=== PATIENT | female | born 1995 | race Caucasian/White ===

== ENCOUNTER 2017-09-19 13:39 | Emergency (ER) | payer OTHER ==
[~2017-09-19] VITALS: Ht 170.2 cm; Wt 64.4 kg
[~2017-09-19 13:39] MED LIST: PRENATAL MULTI1 EAC2 PO
[2017-09-19 14:08] VITALS: BP 122/70
[2017-09-19 15:06] LABS: ABSOLUTE BASOPHIL COUNT 0 /CUMM (0.0-0.2); ABSOLUTE EOSINOPHIL COUNT 0.1 /CUMM (0.0-0.7); ABSOLUTE GRANULOCYTE CT 9.5 /CUMM (1.4-6.5); ABSOLUTE LYMPH COUNT 2.1 /CUMM (1.2-3.4); ABSOLUTE MONOCYTE COUNT 1.2 /CUMM (0.10-0.60); BASOPHIL % 0.2 % (0.0-2.0); EOSINOPHIL % 0.5 % (0-5); GRANULOCYTE % 73.9 % (42.2-75.2); MEAN CORPUSCULAR HGB 28.6 PG (27.0-31.0); MEAN CORPUSCULAR HGB CONC 33.6 G/DL (33.0-37.0); MEAN CORPUSCULAR VOLUME 85.3 FL (81.0-99.0); MEAN PLATELET VOLUME 7.7 FL (7.4-10.4); PLATELET COUNT 277 /CUMM (130-400); RBC DISTRIBUTION WIDTH 13.3 % (11.5-14.5); RED BLOOD CELL CT 3.98 /CUMM (4.20-5.40); WHITE BLOOD CELL COUNT 12.9 /CUMM (4.8-10.8)
--- NOTE | 2017-09-19 17:00 | ED GI/GU/ABDOMINAL COMPLAINT ---
History of Present Illness General Chief Complaint: General Adult Stated Complaint: PAINFUL HEMMERHOID Source: patient Exam Limitations: no limitations Vital Signs & Intake/Output Vital Signs & Intake/Output Vital Signs Date Time Temp Pulse Resp B/P B/P Pulse O2 O2 Flow FiO2 Mean Ox Delivery Rate 09/19 1408 98.7 120 17 122/70 96 Room Air ED Intake and Output 09/20 0000 09/19 1200 Intake Total 0 Output Total Balance 0 Intake, Oral 0 Patient 142 lb Weight Weight Estimated Measurement Method Allergies Coded Allergies: vancomycin (Severe, HIVES 04/27/17) Reconcile Medications Pnv No.122/Iron/Folic Acid ( Multi Tablet) 27 MG IRON-800 MCG TABLET 1 TAB PO DAILY SUPPLEMENT (Reported) Triage Note: RECEIVED 22 YO FEMALE , 35 WEEKS , DUE 10/24/17. PT WITH HX OF HEMORRHOIDS, C/O SEVERE WORSENING ANAL AREA PAIN. NO C/O VAGINAL PAIN OR SEVERE CRAMPING. Triage Nurses Notes Reviewed? yes ? Y Is pt currently ? No Onset: Gradual Duration: week(s): Timing: recent history Quality/Severity: moderate Location: rectal HPI: 22yo female 35 weeks presents to emergency department complaining of increasing painful hemorrhoids for the past few days. Patient has had hemorrhoids since her previous . Patient states that over the past 3 days she has had increasing pain and feels increasing size of hemorrhoid externally. Patient reports pain with passing gas or bowel movement. Patient has been applying Anusol cream topically. Patient has not had rectal bleeding with this hemorrhoid. Patient denies fevers, chills. (Donna Bai) Past History Travel History Traveled to [place] past 21 day No Medical History Any Pertinent Medical History? 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 No (Donna Bai) Review of Systems Review of Systems Constitutional: Reports: no symptoms. EENTM: Reports: no symptoms. Respiratory: Reports: no symptoms. Cardiovascular: Reports: no symptoms. GI: Reports: no symptoms. Genitourinary: Reports: see HPI. Musculoskeletal: Reports: no symptoms. Skin: Reports: no symptoms. Neurological/Psychological: Reports: no symptoms. Hematologic/Endocrine: Reports: no symptoms. Immunologic/Allergic: Reports: no symptoms. All Other Systems: Reviewed and Negative (Lamar VAZQUEZ,Donna Higgins) Physical Exam Physical Exam General Appearance: well developed/nourished, no apparent distress, alert, awake Head: atraumatic, normal appearance Eyes: Bilateral: normal appearance. Ears, Nose, Throat, Mouth: hearing grossly normal Neck: normal inspection, supple, full range of motion Respiratory: normal breath sounds, no respiratory distress, lungs clear Cardiovascular: regular rate/rhythm Gastrointestinal: normal bowel sounds, soft, non-tender Rectal: external hemorrhoids without active bleeding Back: normal inspection, normal range of motion Extremities: normal range of motion Neurologic/Psych: awake, alert, oriented x 3 Skin: intact, normal color, warm/dry Core Measures ACS in differential dx? No Sepsis Present: No Sepsis Focused Exam Completed? No (Lamar VAZQUEZ,Donna Higgins) Progress Differential Diagnosis: intrauterine , hemorrhoids, anal fissue, abscess, rectal bleeding Plan of Care: Orders Procedure Date/time Status URINALYSIS 09/19 1409 Complete COMPREHENSIVE METABOLIC PANEL 09/19 1409 Complete CBC WITHOUT DIFFERENTIAL 09/19 1409 Complete Laboratory Tests 09/19/17 1454: Anion Gap 7, Estimated GFR > 60, BUN/Creatinine Ratio 10.0, Glucose 90, Calcium 9.0, Total Bilirubin 0.5, AST 24, ALT 22, Alkaline Phosphatase 104, Total Protein 6.4, Albumin 3.2 L, Globulin 3.2, Albumin/Globulin Ratio 1.0 L, CBC w Diff NO MAN DIFF REQ, RBC 3.98 L, MCV 85.3, MCH 28.6, MCHC 33.6, RDW 13.3, MPV 7.7, Gran % 73.9, Lymphocytes % 16.1 L, Monocytes % 9.3, Eosinophils % 0.5, Basophils % 0.2, Absolute Granulocytes 9.5 H, Absolute Lymphocytes 2.1, Absolute Monocytes 1.2 H, Absolute Eosinophils 0.1, Absolute Basophils 0 09/19/17 1435: Urine Color YEL, Urine Clarity HAZY H, Urine pH 7.0, Ur Specific [place] 1.010, Urine Protein NEG, Urine Ketones NEG, Urine Nitrite NEG, Urine Bilirubin NEG, Urine Urobilinogen 1.0, Ur Leukocyte Esterase TRACE H, Ur Microscopic SEDIMENT EXAMINED, Urine WBC 1-3 H, Ur Epithelial Cells FEW, Urine Bacteria FEW H, Urine Hemoglobin NEG, Urine Glucose NEG Patient has external hemorrhoids on physical exam. Otherwise no abnormalities, no active bleeding. Patient's labs are non actionable. Patient has stable vital signs, she is laying on stretcher in no acute distress, she is nontoxic- appearing. Patient to begin Preparation H and Colace for her symptoms, both safe during . It was also recommended patient purchase soft donut shaped seat cushion to relieve pressure. Patient to follow up with her SENIOR OPERATOR. The patient agrees with the plan of care. Discussed this case with Dr. Herrera who agrees. Initial ED EKG: none (Lamar VAZQUEZ,Donna Higgins) Departure Departure Disposition: HOME OR SELF CARE Condition: Stable Clinical Impression Primary Impression: Hemorrhoids during Qualifiers: Trimester: third trimester Qualified Code: O22.43 - Hemorrhoids in , third trimester Referrals: Unknown (PCP/Family) Additional Instructions: Discontinue anusol and begin preparation H. Also begin colace twice daily to soften stool and increase your fluids. Perchase a "donut pillow" to sit on which will reduce pressure on your buttocks and relieve hemorrhoid pain. Follow up with your SENIOR OPERATOR. Return with worsening symptoms or concerns. Please note that there might be incidental findings in your evaluation that are unrelated to the current emergency department visit. Please notify your primary care doctor about this emergency department visit in order to obtain and review all of the testing performed so that these incidental findings can be monitored as needed. If you had an x-ray performed, please understand that some fractures may not be seen on the initial set of x-rays. If your symptoms persist you might need a repeat set of x-rays to check for such a fracture. If you had a laceration evaluated, please understand that foreign bodies such as glass or wood may not be visible to the naked eye or on plain x-rays. If the wound becomes red, swollen, increasingly more painful or if there is any drainage from the wound, please have it reevaluated by a physician for the possibility of a retained foreign body. If you're unable to follow up as outlined in the discharge instructions please return to the emergency department. Thank you for choosing the [facility] Emergency Department for your care. It was a pleasure to serve you today. Departure Forms: Customer Survey General Discharge Information (Lamar VAZQUEZ,Donna Higgins) PA/AMBULETTE DRIVER Co-Sign Statement Statement: ED Attending supervision documentation- [] I saw and evaluated the patient. I have also reviewed all the pertinent lab results and diagnostic results. I agree with the findings and the plan of care as documented in the PA's/AMBULETTE DRIVER's documentation. [X] I have reviewed the ED Record and agree with the PA's/AMBULETTE DRIVER's documentation. [] Additions or exceptions (if any) to the PAs/AMBULETTE DRIVER's note and plan are summarized below: [] (Javier CARDENAS,Andre Rosales)
== END 2017-09-19 17:55 ==
LOC: ERH 13:39
PROVIDERS: Physician Assistant Medical
DX: O22.43 Hemorrhoids in pregnancy, third trimester (principal); Z3A.35 35 weeks gestation of pregnancy
CPT/HCPCS: 81001

== ENCOUNTER 2017-10-30 23:21 | Emergency (ER) | payer OTHER | END 2017-10-30 23:40 | disposition admitted as inpatient to this hospital (09) | LOC: ERH 23:21 | DX: O92.70 Unspecified disorders of lactation (principal) ==